=== PATIENT | male | born 1995 | race American Indian/Alaskan Native ===

== ENCOUNTER 2018-03-05 19:13 | Emergency (ER) | payer SELFPAY ==
[2018-03-05 20:43] VITALS: BP 136/75; PULSE 86; RESP 18; TEMP 98.2; O2SAT 99
--- NOTE | 2018-03-05 20:49 | C.PDOC ---
History Of Present Illness 22yo male, comes to ER for evaluation reporting left forehead injury and right trapezius pain after he was injured at work. Patient states the harness he was on failed, and he fell a short distance, striking his left forehead on the side of the wall. Otherwise, patient denies any vomiting, loss of consciousness, weakness, numbness, and offers no additional medical complaints. - HPI Time Seen by Provider: 03/05/18 19:30 Chief Complaint (Nursing): Trauma History Per: Patient History/Exam Limitations: no limitations Injury Occurred (Timing): Just Before Arrival Additional History Per: Patient Past Medical History Reviewed: Historical Data, Nursing Documentation, Vital Signs Vital Signs: Last Vital Signs Temp 98.2 F 03/05/18 20:32 Pulse 86 03/05/18 20:32 Resp 18 03/05/18 20:32 BP 136/75 03/05/18 20:32 Pulse Ox 99 03/05/18 20:49 - Medical History PMH: No Chronic Diseases Surgical History: No Surg Hx Family History: States: No Known Family Hx - Social History Hx Alcohol Use: No Hx Substance Use: No Review Of Systems Except As Marked, All Systems Reviewed And Found Negative. Eyes: Negative for: Vision Change Gastrointestinal: Negative for: Vomiting Musculoskeletal: Positive for: Other (right trapezius pain) Neurological: Positive for: Other (left forehead injury). Negative for: Weakness, Numbness, Headache, Dizziness Physical Exam - Physical Exam Appears: Non-toxic, No Acute Distress Skin: Normal Color, Warm, Dry Head: Normacephalic, Other (contusion noted to left forehead) Eye(s): bilateral: Normal Inspection, PERRL, EOMI Nose: Normal Throat: Normal Neck: Normal, Supple Chest: Symmetrical Cardiovascular: Rhythm Regular Respiratory: Normal Breath Sounds Gastrointestinal/Abdominal: Normal Exam Back: Other (minimal tenderness to right trapezius) Extremity: Normal ROM, No Deformity Neurological/Psych: Oriented x3, Normal Speech, Normal Cognition, Normal Cranial Nerves, Normal Motor, Normal Sensation ED Course And Treatment O2 Sat by Pulse Oximetry: 99 (RA) Pulse Ox Interpretation: Normal Medical Decision Making Medical Decision Making: superficial contusion to L forehead and R trapezius strain normal head/C-spine CT's neuro intact no distracting injuries. Disposition Doctor Will See Patient In The: Office Counseled Patient/Family Regarding: Studies Performed, Diagnosis - Disposition Referrals: [facility] [Outside] [facility] [Outside] [facility] [Outside] [facility] [Outside] Disposition: HOME/ ROUTINE Disposition Time: 20:49 Condition: GOOD Additional Instructions: continue ice packs to forehead and neck area 1/2 hour per hour, nothing hot no hot showers for 3 days Motrin/advil 400-600 mg every 6 hours as needed Head and Cervical Spine CT exams were NORMAL Instructions: Muscle Strain (DC), Minor Head Injury Forms: Postachio (Mauritanian) - Clinical Impression Clinical Impression: Muscle strain, Contusion of head - Scribe Statement The provider has reviewed the documentation as recorded by the Arianna Alanis Provider Attestation: All medical record entries made by the Arianna were at my direction and personally dictated by me. I have reviewed the chart and agree that the record accurately reflects my personal performance of the history, physical exam, medical decision making, and the department course for this patient. I have also personally directed, reviewed, and agree with the discharge instructions and disposition.
--- NOTE | 2018-03-06 07:54 | CT ---
Date of service: 03/05/2018 PROCEDURE: CT HEAD WITHOUT CONTRAST. HISTORY: Fall. Left frontal contusion. COMPARISON: None available. TECHNIQUE: Axial computed tomography images were obtained through the head/brain without intravenous contrast. Radiation dose: Total exam DLP = 1184 mGy-cm. This CT exam was performed using one or more of the following dose reduction techniques: Automated exposure control, adjustment of the mA and/or kV according to patient size, and/or use of iterative reconstruction technique. FINDINGS: HEMORRHAGE: No intracranial hemorrhage. BRAIN: No mass effect or edema. No atrophy or chronic microvascular ischemic changes. VENTRICLES: Unremarkable. No hydrocephalus. CALVARIUM: Unremarkable. PARANASAL SINUSES: Unremarkable as visualized. No significant inflammatory changes. MASTOID AIR CELLS: Unremarkable as visualized. No inflammatory changes. OTHER FINDINGS: None. IMPRESSION: No acute intracranial abnormality. If symptoms persists, consider correlation with MRI. These findings were preliminarily reported by Dr. Toña Herrera on 03/05/2018 at 8:19 p.m. from [facility].
--- NOTE | 2018-03-06 08:23 | CT ---
CT cervical spine HISTORY: Injury. Neck pain. COMPARISON: None available. TECHNIQUE: Multiple contiguous axial images were performed through the cervical spine without the use of intravenous contrast. Subsequently, sagittal and coronal reformatted images were obtained. This CT exam was performed using one or more of the following dose reduction techniques: Automated exposure control, adjustment of the mA and/or kV according to patient size, and/or use of iterative reconstruction technique. FINDINGS: Spinal alignment is maintained. Vertebral body heights are preserved. No evidence of acute displaced fracture. Incidentally noted is a 4 millimeter nodule in the right lobe of the thyroid. Correlation with thyroid ultrasound may be helpful if clinically indicated. Impression: Negative acute. If pain persists, consider correlation with MRI. Incidentally noted is a 4 millimeter nodule in the right lobe of the thyroid. Correlation with thyroid ultrasound may be helpful if clinically indicated. These findings were preliminarily reported by Dr. Toña Herrera on 03/05/2018 at 8:23 p.m. from [facility].
== END 2018-03-05 20:57 | disposition home or self-care (01) ==
LOC: C.ER 19:13
DX: S00.93XA Contusion of unspecified part of head, initial encounter (principal); S46.911A Strain of unspecified muscle, fascia and tendon at shoulder and upper arm level, right arm, initial encounter; W11.XXXA Fall on and from ladder, initial encounter; Y92.89 Other specified places as the place of occurrence of the external cause; Y99.0 Civilian activity done for income or pay
CPT/HCPCS: 70450; 72125; 96374; 99285; J1885